=== PATIENT | male | born 1990 | race Caucasian/White ===

== ENCOUNTER 2020-04-04 14:18 | Emergency (ER) | payer OTHER, SELFPAY ==
[2020-04-04 14:21] VITALS: BP 156/95; PULSE 79; RESP 20; TEMP 36.4; O2SAT 99
[2020-04-04] MEDS: CELLULOSE OXIDIZED 2 x 14 INCH 1 PKT XX (14:41)
--- NOTE | 2020-04-04 14:45 | ED.WOUNDLAC ---
HPI - Wound/Laceration General Chief Complaint: Wound/Laceration Stated Complaint: laceration L thumb Time Seen by Provider: 04/04/20 14:27 Source: patient Mode of arrival: ambulatory Limitations: no limitations History of Present Illness HPI narrative: This is a 29 year old male that presents to the ER left 1st finger laceration sustained yesterday. Reports he was chopping vegetables and cut the skin at the tip of his finger off. Reports he put a bandage on it that he thought was nonstick and it is stuck and he can't get if off. He is unsure of his last tetanus vaccine. Denies fever. Related Data Allergies Allergy/AdvReac Type Severity Reaction Status Date / Time No Known Allergies Allergy Verified 04/04/20 14:23 Review of Systems Review of Systems: Narrative: CONSTITUTIONAL: Denies fever SKIN: Reports laceration All systems reviewed & are unremarkable except as noted in HPI and below PMFSH Past Medical History Medical History (Updated 04/04/20 @ 14:51 by Eli June PA-C) No active medical problems Social History Social History (Updated 04/04/20 @ 14:48 by Eli June PA-C) Substance use: never Gender identity (if verbalized by the patient): Male Exam Narrative: Exam Narrative: GENERAL: Well-appearing, well-nourished, and in no acute distress. HEAD: Normocephalic, atraumatic. EYES: EOMI. EXTREMITIES: Normal range of motion. No edema. Left 1st finger with small area (1cm) of skin at tip of finger that is avulsed SKIN: Warm, dry, no rash. NEURO: No focal deficits. Alert and oriented x3. PSYCH: Normal mood and affect Course Vital Signs Vital signs: Vital Signs Temperature 97.5 F L 04/04/20 14:21 Pulse Rate 79 04/04/20 14:21 Respiratory Rate 20 04/04/20 14:21 Blood Pressure 156/95 H 04/04/20 14:21 Pulse Oximetry 99 04/04/20 14:21 Temperature 97.5 F L 04/04/20 14:21 Pulse Rate 79 04/04/20 14:21 Respiratory Rate 20 04/04/20 14:21 Blood Pressure 156/95 H 04/04/20 14:21 Pulse Oximetry 99 04/04/20 14:21 MDM - Wound/Laceration MDM Narrative Medical decision making narrative: Patient presents the emergency department for skin avulsion sustained yesterday. Patient was updated on tetanus. Bleeding was controlled with Surgicel. Patient will be started on prophylactic antibiotic. He was instructed on wound care. He is to follow-up with primary care doctor. He was given warnings to return to ER Critical Care Time Critical Care Time Critical Care Time: No Discharge Plan Discharge Clinical Impression: Avulsion of skin of finger Qualifiers: Encounter type: initial encounter Qualified Code(s): S61.209A - Unspecified open wound of unspecified finger without damage to nail, initial encounter Patient Disposition: Home, Self-Care Condition: Stable Instructions: Antibiotic Form, Skin Avulsion (ED) Additional Instructions: Return to the emergency department if you experience fever, redness or swelling of your wound, abnormal drainage from your wound, or any other symptoms that are concerning to you. Leave the bottom layer of gauze on until it falls off and/or absorbs. You may change the top bandage daily. Take oral antibiotic as prescribed pain Follow-up with primary care doctor for wound check Prescriptions: New cephalexin 500 mg capsule 500 mg PO Q8H 3 Days Qty: 9 RF: 0 Follow-up/Referrals: PHYSICIAN,[employer] [Primary Care Provider] - Ej Humphries DO [Physician] - 1 Week
[2020-04-04] MEDS: TETANUS,DIPHTHERIA,AC PERTUSSIS ADULT (0.5 ML) BOOSTRIX IM (14:55)
== END 2020-04-04 15:16 | disposition home or self-care (01) ==
PROVIDERS: Emergency Provider Emergency Medicine
DX: S61.012A Laceration without foreign body of left thumb without damage to nail, initial encounter (principal); W26.0XXA Contact with knife, initial encounter; Y93.G1 Activity, food preparation and clean up; Z23 Encounter for immunization
CPT/HCPCS: 12001; 90471; 90715; 99283